=== PATIENT | female | born 1980 | race Caucasian/White ===

== ENCOUNTER 2023-09-30 15:47 | Emergency (ER) | payer SELFPAY ==
[2023-09-30 15:49] VITALS: BP 184/94; PULSE 109; RESP 19; TEMP 37.2; O2SAT 99; BMI 40.8
[2023-09-30 16:09] VITALS: BP 159/83; PULSE 119; RESP 14; O2SAT 100
--- NOTE | 2023-09-30 17:06 | EX.ED.DYSGE1 ---
HPI History of Present Illness Chief Complaint: General Illness Informant: patient and spouse/S.O. Onset/Context/Timing Onset: Days Context: Gradual Onset Timing: Intermittent Current Severity: Mild Maximum Severity: Mild Narrative Narrative: 43-year-old female no seen past medical history. No significant family history. Sent on Wednesday she fell her left lower ribs felt abnormal she said my ribs go out easily . She saw her chiropractor yesterday who did manipulation she said she felt better. But she said later today and today she just has not felt right. She has had kind of muscle spasms in her lower neck and just does not feel well and somewhat flushed. Nausea no vomiting or diarrhea. No fever. No cough or shortness of breath. No abdominal pain. No dysuria or melena. No rash. No history of DVT or PE. No travel, surgery or immobilization. No calf pain or swelling. No hemoptysis. No family history of clotting disorder. Prior similar symptoms: No Recent Illness/Hospitalization: No PFSH PFSH Medical History no medical history no medical history Home Medications NK 09/30/23 [History Last Taken Unknown] Allergy/AdvReac Type Severity Reaction Status Date / Time No Known Allergies Allergy Verified 09/30/23 15:54 Surgical History History of appendectomy Social History household members: spouse and children housing: house Smoking Status: Never smoker ROS ROS ED ROS Narrative Malaise. Review of Systems ROS Unobtainable: Denies due to encephalopathy Constitutional Constitutional ED: Denies chills or fever(s) Eyes Eyes: Denies blurry vision ENT ENT ED: Denies ear pain Cardiovascular Cardiovascular: Denies chest pain Respiratory/Chest Respiratory/Chest: Denies cough Gastrointestinal Gastrointestinal: Denies abdominal pain, constipation, diarrhea, melena, nausea or vomiting Genitourinary Genitourinary ED: Denies dysuria or hematuria Musculoskeletal Musculoskeletal: Denies arthralgias or back pain Integumentary Denies abscess Neurologic Neurologic: Denies headache(s) Psychiatric Psychiatric: Denies anxiety Endocrine Endocrinology: Denies cold intolerance Hematologic/Lymphatic Hematologic/Lymphatic: Reports none Allergic/Immunologic Allergic/Immunologic ED: Denies mouth swelling, tongue swelling or urticaria EXAM Physical Exam Narrative Exam Narrative: Well-appearing 43-year-old female. Vital signs are stable. Pulse ox 99% on room air no signs hypoxia. She is tachycardic around 119. HEENT exam unremarkable. Moist with membranes. No facial droop. Normal speech. Neck nontender no lymphadenopathy no meningismus. Lungs clear to auscultation bilaterally. Heart tachycardic rate about 119. Chest wall and ribs nontender. Back nontender. Abdomen soft, nontender, nondistended normal bowel sounds no peritoneal signs. Moving all 4 extremities. Calves are nontender without edema or cords. Normal motor strength in both upper and lower extremities. Neurologically she is awake and alert with no focal motor deficits. Const Vital Signs: 09/30/23 15:49 09/30/23 16:09 09/30/23 16:09 Temperature 99 F Temperature Source Temporal Pulse Rate 109 H 119 H Respiratory Rate 19 H 14 Respiratory Effort Short of Breath Respiratory Pattern Normal Blood Pressure 184/94 H 159/83 H Blood Pressure Mean 124 108 Pulse Ox 99 100 Oxygen Delivery Method Room Air Room Air 09/30/23 16:11 09/30/23 17:24 09/30/23 17:30 Temperature Temperature Source Pulse Rate 116 H Respiratory Rate 18 Respiratory Effort Respiratory Pattern Normal Blood Pressure 155/88 H Blood Pressure Mean 110 Pulse Ox 97 Oxygen Delivery Method Room Air Room Air Positive well nourished and well developed; Negative for cachectic or contractures General Appearance ED: well developed and NAD; Negative for cachectic, contractures, cyanotic, diaphoretic or pallor Nutritional Appearance: Negative for cachectic HEENT Reports moist mucous membranes; Denies dry mucous membranes Negative for trauma or tenderness Mouth ED: No dry mucous membranes Mouth: No dry mucous membranes Eyes PERRL and EOMs intact bilaterally General Eye ED: Negative for pale conjunctiva or scleral icterus Neck no lymphadenopathy, supple and no JVD General: Negative for tenderness Lymph Lymphatic: Negative for other Chest Wall inspection of chest normal and palpation of chest normal Resp normal respiratory effort and clear to auscultation bilaterally Effort and Inspection: Negative for retractions Auscultation: Negative for rales, rhonchi or wheezes Cardio regular rhythm, S1 normal heart sound, S2 normal heart sound and no murmurs; Negative for regular rate Rate: tachycardic Rhythm: Negative for abnormal rhythm GI normal to inspection, nondistended, normoactive bowel sounds, non-tender, non-distended and no masses Inspection: Negative for abdominal distention Auscultation: normoactive bowel sounds Palpation: soft; Negative for tender, guarding, splenomegaly, mass or rebound tenderness present Back/Spine no CVA tenderness General Back: Negative for CVA tenderness Cervical Spine: Negative for cervical spine tenderness Thoracic Spine / Upper Back: Negative for thoracic spinal tenderness Extremity normal to inspection General Extremety ED: Negative for edema, tenderness or other findings General Extremity: Negative for edema or other findings Neuro oriented x3 and CN's II-XII intact bilaterally Sensorium / Orientation: alert; Negative for orientation impaired, lethargic or stuporous Motor Exam: strength 5/5 throughout Psych mental status grossly normal Appearance: Negative for other Attitude: No agitated Mood & Affect: Negative for depressed, anxious or tearful Skin no rashes or lesions noted, no wounds and skin turgor normal General Skin Exam: elasticity normal; Negative for jaundice or pallor Lesions: No lesion noted Rashes: No rashes noted Trauma: Negative for abrasion Wounds: Negative for wounds noted MDM MDM MDM Narrative Medical decision making narrative: 43-year-old with atypical presentations as tachycardia with no prior history of DVT or PE. She has had no vomiting or diarrhea. No dysuria. No rash. Atypical cardiac workup will be entertained and a D-dimer. Exam was completely unremarkable other than tachycardia. Repeat exam at 530 and 7:45 PM patient is doing well exam unchanged and went over all test results chest x-ray and EKG with the patient is comfortable being discharged home. History & Record Review Discussion w/independent historian: Patient Additional record(s) reviewed:: No prior records Lab Data Attestation: I reviewed the patient's lab results. Lab results narrative: CBC normal. Chemistries show a gap of 8 normal BUN and creatinine. Glucose 105. Troponin 5. D-dimer is normal at less than 0.27. Chest x-ray normal. EKG sinus tachycardia. Labs: Laboratory Results - last 24 hr 09/30/23 15:20 WBC 8.9 RBC 4.46 Hgb 13.3 Hct 41.2 MCV 92.4 MCH 29.8 MCHC 32.3 RDW Std Deviation 42.8 RDW Coeff of Esther 12.6 Plt Count 331 MPV 10.4 Immature Gran % (Auto) 0.300 Neut % (Auto) 65.0 Lymph % (Auto) 25.7 [place] % (Auto) 7.5 Eos % (Auto) 0.8 Baso % (Auto) 0.7 Absolute Neuts (auto) 5.8 Absolute Lymphs (auto) 2.28 Nucleated RBC % 0 D-Dimer Quant (PE/DVT) < 0.27 L Sodium 137 Potassium 3.4 L Chloride 104 Carbon Dioxide 25.0 Anion Gap 8 BUN 13 Creatinine 0.83 Estim Creat Clear Calc 112.50 Est GFR (MDRD) Af Amer 96 Est GFR (MDRD) Non-Af 80 BUN/Creatinine Ratio 15.7 Glucose 105 Calcium 9.5 Troponin I High Sens 5 Radiography Chest X-Ray - ED: 1 View, Read by ED Physician, Heart, Lungs, Mediastinum, Bony Structures and No Acute Disease Diagnostic Testing: Clinical Impression(s) from Imaging Studies Chest X-Ray 09/30/23 17:25 IMPRESSION: Normal x-ray examination of the chest. Electronically Signed: Junior Bravo MD at 18:08 EST Reading Location ID and State: [facility] / [place] , Service support , Chest x-ray, single view, interpreted by myself shows no acute abnormality. Normal cardiac silhouette. Normal lung slaughter. Rhythm Strip Rhythm Strip: Sinus Tach Rate: 111 Ectopy: None EKG Initial EKG: Attestation: I personally reviewed and interpreted this EKG as follows: Interpretation: Sinus Rhythm and Sinus Tachycardia Comments: Sinus tachycardia rate of 111 no acute signs of WI or ischemia. No [id number]. No old EKG available. Prior EKG tracings: not available for review Discharge Plan Triage Chief Complaint: General Illness ED Provider: Hieu Haley Dx/Rx/DC Orders Clinical Impression: Generalized weakness Instructions: ED Weakness (Uncertain Cause) Prescriptions: No Action NK Primary Care Provider: Mk Toledo Referrals: Mk Toledo DO [Primary Care Provider] - 1 Week Activity Restrictions/Additional Instructions: All your labs, EKG and chest x-ray were unremarkable today. Follow-up with your primary care provider. Disposition Disposition: Home, Self Care
--- NOTE | 2023-09-30 17:15 | ED.RN ---
NO OLD EKG
--- NOTE | 2023-09-30 17:25 | RAD_ITS ---
STUDY: X-RAY CHEST REASON FOR EXAM: Female, 43 years old. Atypical chest pain TECHNIQUE: Single AP portable view of the chest. COMPARISON: None. FINDINGS: EKG leads overlie the chest The lungs are clear and expanded. There is no demonstrated pleural abnormality. Normal size heart. Normal mediastinum and cierra. Normal visualized pulmonary arteries. Normal visualized aortic arch and descending thoracic aorta. Normal visualized thoracic spine. Normal visualized ribs, clavicles, and shoulders. There is no demonstrated abnormality of the visualized soft tissue structures of the upper abdomen. RAD/Chest 1 View (Portable) IMPRESSION: Normal x-ray examination of the chest. Electronically Signed: Junior Bravo MD at 18:08 EST ,
[2023-09-30 17:29] LABS: Absolute Lymphocyte Count 2.28 X10^3/uL (0.83-4.51); Absolute Neutrophil Count 5.8 X10^3/uL (2.0-7.7); Basophil# 0.06 X10^3/uL; Basophil% 0.7 % (0-1); Eosinophil# 0.07 X10^3/uL; Eosinophils% 0.8 % (0-5); Hematocrit 41.2 % (37-47); Hemoglobin 13.3 g/dL (12.0-15.0); Lymphocyte # 2.28 X10^3/ul (0.83-4.51); Lymphocyte % 25.7 % (19-41); Mean Corp Hgb Conc 32.3 g/dL (32-36); Mean Corpuscular Hgb 29.8 pg (27.0-32.0); Mean Corpuscular Volume 92.4 fL (81-99); Mean Platelet Vol. 10.4 fl (6.2-12.0); Monocyte# 0.67 X10^3/uL; Monocyte% 7.5 % (0-10); NRBC Flagged by Analyzer 0 % (0-5); Neutrophil # 5.77 X10^3/uL (2.7-7.7); Platelet Count 331 K/mm3 (150-450); RBC Distribution Width CV 12.6 % (11.6-14.6); RBC Distribution Width SD 42.8 fl (35.1-43.9); Red Blood Count 4.46 M/mm3 (4.2-5.4); White Blood Count 8.9 K/mm3 (4.4-11.0)
[2023-09-30 17:30] VITALS: BP 155/88; PULSE 116; RESP 18; O2SAT 97
[2023-09-30] MEDS: Aspirin 81 MG TAB.CHEW 324 MG PO (17:30)
[2023-09-30 17:50] LABS: Anion Gap 8 (5-15); BUN 13 mg/dL (7-18); BUN/Creat Ratio 15.7 RATIO (10-20); Calcium,Total 9.5 mg/dL (8.5-10.1); Chloride 104 mmol/L (98-107); Creatinine, Serum 0.83 mg/dL (0.55-1.02); EST Glomerular Filtration Rate 80 mL/min (>60); Est Glom Filt Rate - Afr Amer 96 mL/min (>60); Glucose 105 mg/dL (74-106); Potassium 3.4 mmol/L (3.5-5.1); Sodium Level 137 mmol/L (136-145); Troponin-I HS 5 pg/mL (3.0-54.0)
[2023-09-30 18:26] LABS: D-Dimer Quantitative (DVT/PE) < 0.27 FEU/ug/m (0.27-0.49)
[2023-09-30 19:59] VITALS: BP 160/100; PULSE 102; RESP 18; TEMP 37.2; O2SAT 95
== END 2023-09-30 20:00 | disposition home or self-care (01) ==
PROVIDERS: Emergency Provider Emergency Medicine; PCP Family Medicine; Visit Provider Emergency Medicine
DX: R53.1 Weakness (principal); R11.0 Nausea; R00.0 Tachycardia, unspecified
CPT/HCPCS: 71045; 80048; 84484; 85025; 85379; 93005; 99285; J7030; A4216